=== PATIENT | female | born 1975 | race Caucasian/White ===

== ENCOUNTER 2017-03-27 16:09 | Emergency (ER) | payer OTHER ==
[2017-03-27] MEDS ORDERED: IBUPROFEN800 MG PO (16:23)
[2017-03-27] MEDS ORDERED: LINZESS290 MCG PO (16:24)
[2017-03-27] MEDS ORDERED: PROTONIX40 M1 (16:24)
[2017-03-27] MEDS ORDERED: NEURONTIN600 MG PO (16:24)
[2017-03-27] MEDS ORDERED: DOCUSATE SODIU100 M1 (16:24)
[2017-03-27] MEDS ORDERED: DULOXETINE HCL60 MG PO (16:25)
[2017-03-27] MEDS ORDERED: ZESTORETIC 20-1 EAC2 (16:25)
[2017-03-27] MEDS ORDERED: TIROSINT112 MCG PO (16:25)
[2017-03-27] MEDS ORDERED: INDERAL20 MG PO (16:25)
== END 2017-03-27 17:15 | disposition left against medical advice (07) ==
LOC: SED 16:09
DX: Z53.21 Procedure and treatment not carried out due to patient leaving prior to being seen by health care provider (principal)